=== PATIENT | male | born 1935 | race Caucasian/White ===

== ENCOUNTER → 2016-11-15 | Outpatient (CLI) | payer MEDICARE | END | disposition home or self-care (01) | LOC: PCVCCLINIC 12:52 | PROVIDERS: ATTEND Internal Medicine Cardiovascular Disease | DX: I25.10 Atherosclerotic heart disease of native coronary artery without angina pectoris (principal); E78.00 Pure hypercholesterolemia, unspecified; I10 Essential (primary) hypertension; E11.9 Type 2 diabetes mellitus without complications; I77.1 Stricture of artery; Z95.1 Presence of aortocoronary bypass graft | CPT/HCPCS: G0463 ==

== ENCOUNTER → 2017-05-16 | Outpatient (CLI) | payer MEDICARE ==
--- NOTE | 2017-05-16 14:10 | PCVCIMAG ---
EXAM: AORTOILIAC DUPLEX INDICATION: Peripheral arterial disease FINDINGS: AORTA: Suprarenal aorta measures maximum diameter of 3.0 cm. There is not a fusiform infrarenal aortic aneurysm. The infrarenal aorta measures maximum diameter of 2.7 cm. No aortic stenosis. RIGHT COMMON ILIAC ARTERY: Maximum diameter is 1.3 cm. No significant stenosis. RIGHT EXTERNAL ILIAC ARTERY: No significant stenosis. LEFT COMMON ILIAC ARTERY: Maximum diameter is 1.4 cm. No significant stenosis. LEFT EXTERNAL ILIAC ARTERY: No significant stenosis. IMPRESSION: No abdominal aortic aneurysm. No aortoiliac stenosis seen. Ectasia of the infrarenal abdominal aorta measuring up to 2.7 cm in diameter. LOC:[id number]
--- NOTE | 2017-05-16 18:42 | PCVCIMAG ---
APPROVED REPORT Exam: Stress Echocardiogram Indication: CAD s/p CABG Patient Location: Echo lab Stress Nurse: Jazz Franco RN Status: routine Ht: 5 ft 8 in HR: 66 bpm BP: 114/70 mmHg Rhythm: NSR Medical History Medical History: HTN, Diabetes, Hyperlipidemia Cardiac Risk Factors: DM, HTN, Hyperlipidemia Previous Cardiac Procedures: CABG Exercise History: Physically active Procedure The patient underwent an Exercise Stress Test using the Arnoldo Protocol. Blood pressure, heart rate, and EKG were monitored. An Echocardiogram was performed by air moving technician in four stages in quad fashion. At peak stress, four selected images were obtained and placed side by side with resting images for comparison. Stress Test Details Stress Test: Exercise stress testing was performed using a Arnoldo protocol. HR Resting HR: 81 bpmMax Heart Rate (APMHR): 141 bpm Max HR Achieved: 137 bpmTarget HR (85% APMHR): 119 bpm % of APMHR: 97 Recovery HR: 93 bpm HR response to stress: Normal HR response to stress BP Resting BP: 114/70 mmHg Max BP: 172/80 mmHg Recovery BP: 128/74 mmHg ECG Resting ECG: Sinus Rhythm Stress ECG: Sinus Rhythm Arrhythmia: None Recovery ECG: Sinus Rhythm Recovery ST Change: Non-ischemic Recovery Arrhythmia: None Clinical Reason for Termination: Maximal effort Stress Symptoms: none Exercise duration: 7 min 01 sec Highest Stage Achieved: Stage 3: 3.4 mph at 14% grade. Exercise capacity: 10.1 METs Overall Exercise Capacity for Age: Average Angina Score: None Pre-Stress Echo The resting Echocardiogram showed normal left ventricular contractility with an estimated Ejection Fraction of about 55-60%. Normal wall motion in all segments on baseline images. Post-Stress Echo The stress Echocardiogram showed normal left ventricular contractility with an estimated Ejection Fraction of about 65-70%. Normal augmentation of wall motion in all segments on post stress images. Clinical No clinical or ECG evidence for ischemia. Conclusion Clinical Response: Non-ischemic Exercise Capacity: Average Stress ECG Response: Non-ischemic Stress Echo Images: Non-ischemic No clinical, EKG or echocardiographic evidence for ischemia. No echocardiographic evidence for exercise induced ischemia. Normal stress echocardiogram with maximal exercise stress. <Conclusion> No clinical, EKG or echocardiographic evidence for ischemia. No echocardiographic evidence for exercise induced ischemia. Normal stress echocardiogram with maximal exercise stress.
== END | disposition home or self-care (01) ==
LOC: PCVCIMAG 09:58
PROVIDERS: ATTEND Internal Medicine Cardiovascular Disease
DX: I77.811 Abdominal aortic ectasia (principal); I70.209 Unspecified atherosclerosis of native arteries of extremities, unspecified extremity; I10 Essential (primary) hypertension; E11.9 Type 2 diabetes mellitus without complications; E78.5 Hyperlipidemia, unspecified; Z95.1 Presence of aortocoronary bypass graft
CPT/HCPCS: 93325; 93351; 93978

== ENCOUNTER → 2018-02-27 | Outpatient (CLI) | payer MEDICARE | LOC: PCVCCLINIC 12:09 | DX: I25.10 Atherosclerotic heart disease of native coronary artery without angina pectoris (principal); I10 Essential (primary) hypertension; G47.33 Obstructive sleep apnea (adult) (pediatric); I70.1 Atherosclerosis of renal artery; I73.9 Peripheral vascular disease, unspecified; E78.00 Pure hypercholesterolemia, unspecified; I65.23 Occlusion and stenosis of bilateral carotid arteries; Z88.8 Allergy status to other drugs, medicaments and biological substances; Z95.1 Presence of aortocoronary bypass graft; Z79.82 Long term (current) use of aspirin; Z79.899 Other long term (current) drug therapy | CPT/HCPCS: 93005; G0463 ==

== ENCOUNTER → 2018-12-10 | Outpatient (CLI) | payer MEDICARE ==
--- NOTE | 2018-12-10 10:43 | PCVCIMAG ---
APPROVED REPORT Study performed: 12/10/2018 10:03:45 Exam: Stress Echocardiogram Indication: CAD s/p CABG, Hypertension, Hyperlipidemia Patient Location: Echo lab Stress Nurse: Drea Walton RN Status: routine Ht: 5 ft 6 in HR: 83 bpm BP: 120/78 mmHg Rhythm: NSR Procedure The patient underwent an Exercise Stress Test using the Arnoldo Protocol. Blood pressure, heart rate, and EKG were monitored. An Echocardiogram was performed by copier field service technician in four stages in quad fashion. At peak stress, four selected images were obtained and placed side by side with resting images for comparison. Stress Test Details Stress Test: Exercise stress testing was performed using a Arnoldo protocol. HR Resting HR: 59 bpmMax Heart Rate (APMHR): 139 bpm Max HR Achieved: 134 bpmTarget HR (85% APMHR): 118 bpm % of APMHR: 96 Recovery HR: 83 bpm HR response to stress: Normal HR response to stress BP Resting BP: 120/78 mmHg Max BP: 168/80 mmHg Recovery BP: 152/78 mmHg BP response to stress: Normal blood pressure response to stress. ECG Resting ECG: Sinus Rhythm Stress ECG: Sinus Rhythm ST Change: Normal Arrhythmia: PVCs Recovery ECG: Sinus Rhythm Recovery ST Change: Normal Recovery Arrhythmia: PVCs Clinical Reason for Termination: Maximal effort Stress Symptoms: Dyspnea Exercise duration: 6 min 25 sec Highest Stage Achieved: Stage 3: 3.4 mph at 14% grade. Exercise capacity: 8.2 METs Overall Exercise Capacity for Age: Normal Scale: Sedentary Angina Score: None Pre-Stress Echo The resting Echocardiogram showed normal left ventricular contractility with an estimated Ejection Fraction of about >55%. Normal wall motion in all segments on baseline images. Post-Stress Echo The stress Echocardiogram showed normal left ventricular contractility with an estimated Ejection Fraction of about 65%. Normal augmentation of wall motion in all segments on post stress images. Clinical No clinical or ECG evidence for ischemia. Conclusion Clinical Response: Non-ischemic Exercise Capacity: Average Stress ECG Response: Non-ischemic Stress Echo Images: Non-ischemic The left ventricle is normal in size in both the rest and stress images. Mild-moderate tricuspid regurgitation with PAP of 45 mmHg Mild-moderate LVH. Moderate mitral calcification, no stenosis. Other Information Study Quality: Adequate <Conclusion> The left ventricle is normal in size in both the rest and stress images. Mild-moderate tricuspid regurgitation with PAP of 45 mmHg Mild-moderate LVH. Moderate mitral calcification, no stenosis.
--- NOTE | 2018-12-10 14:30 | PCVCIMAG ---
EXAM: BILATERAL RENAL ULTRASOUND AND BILATERAL RENAL DUPLEX INDICATION: Hypertension. Previous left renal artery stent. FINDINGS: Right kidney: Length measures 9.6 cm. No hydronephrosis or extensive renal scarring. Right renal duplex: Adequate technical quality. No sonographic evidence of renal artery stenosis. The aortic to renal artery ratio is 0.8. The renal vein is patent. Left kidney: Length measures 12.0 cm. No hydronephrosis or extensive renal scarring. Left renal duplex: Adequate technical quality. No sonographic evidence of renal artery stenosis. The aortic to renal artery ratio is 1.4. The renal vein is patent. Bladder: No obvious abnormalities. IMPRESSION: No significant renal artery stenosis. No hydronephrosis bilaterally. LOC:[id number]
== END | disposition home or self-care (01) ==
LOC: PCVCIMAG 13:09
PROVIDERS: ATTEND Internal Medicine Cardiovascular Disease
DX: I08.1 Rheumatic disorders of both mitral and tricuspid valves (principal); I10 Essential (primary) hypertension; I25.10 Atherosclerotic heart disease of native coronary artery without angina pectoris; E78.5 Hyperlipidemia, unspecified; Z95.1 Presence of aortocoronary bypass graft
CPT/HCPCS: 76770; 93325; 93351; 93975

== ENCOUNTER → 2019-04-30 | Outpatient (CLI) | payer MEDICARE | END | disposition home or self-care (01) | LOC: PCVCCLINIC 14:37 | PROVIDERS: ATTEND Internal Medicine Cardiovascular Disease | DX: I25.10 Atherosclerotic heart disease of native coronary artery without angina pectoris (principal); I65.23 Occlusion and stenosis of bilateral carotid arteries; R00.1 Bradycardia, unspecified; I45.10 Unspecified right bundle-branch block; E78.00 Pure hypercholesterolemia, unspecified; I12.9 Hypertensive chronic kidney disease with stage 1 through stage 4 chronic kidney disease, or unspecified chronic kidney disease; N18.9 Chronic kidney disease, unspecified; G47.33 Obstructive sleep apnea (adult) (pediatric); Z95.1 Presence of aortocoronary bypass graft; Z79.82 Long term (current) use of aspirin | CPT/HCPCS: 36415; 80061; 93005; G0463 ==